=== PATIENT | female | born 1960 | race Two or more races ===

== ENCOUNTER 2019-02-23 18:20 | Inpatient (IN) | payer BC ==
[~2019-02-23] VITALS: Ht 154.9 cm; Wt 56.7 kg
[2019-02-23] MEDS ORDERED: HYDROMORPHONE 1 MG/1 ML DISP.SYRIN IV ONE (19:30)
[2019-02-23] MEDS ORDERED: ONDANSETRON 4 MG/2 ML VIAL IV ONE (19:30)
[2019-02-23] MEDS ORDERED: IV NORMAL SALINE 1000 ML BAG IV ONE (19:30)
[2019-02-23] MEDS ORDERED: ONDANSETRON 4 MG/2 ML VIAL ONE (19:34)
[2019-02-23] MEDS ORDERED: HYDROMORPHONE 2 MG/1 ML DISP.SYRIN ONE (19:34)
[2019-02-23 19:48] LABS: BASOPHILS # (AUTO) 0.1 K/uL (0.0-8.0); BASOPHILS % (AUTO) 0.8 % (0.0-2.0); EOSINOPHILS # (AUTO) 0.2 K/uL (0.0-0.7); HEMATOCRIT 39.3 % (31.2-41.9); HEMOGLOBIN 13.1 g/dL (10.9-14.3); LYMPHOCYTES # (AUTO) 2.7 K/uL (20.0-40.0); LYMPHOCYTES % (AUTO) 30.9 % (20.5-51.5); MEAN CORPUSCULAR HEMOGLOBIN 29.1 uug (24.7-32.8); MEAN CORPUSCULAR HGB CONC 33 g/dL (32.3-35.6); MEAN CORPUSCULAR VOLUME 87.5 fL (75.5-95.3); MONOCYTES # (AUTO) 0.5 K/uL (2.0-10.0); MONOCYTES % (AUTO) 6.1 % (0.0-11.0); NEUTROPHILS # (AUTO) 5.2 K/uL (1.8-8.9); NEUTROPHILS % (AUTO) 60.2 % (38.5-71.5); PLATELET COUNT (AUTO) 256 K/uL (179-408); WHITE BLOOD COUNT (AUTO) 8.7 K/uL (3.8-11.8)
[2019-02-23 19:55] LABS: CREATININE 0.7 mg/dL (0.6-1.3)
[2019-02-23 20:01] LABS: BILIRUBIN,DIRECT 0.1 mg/dL (0.0-0.2); BILIRUBIN,TOTAL 0.3 mg/dL (0.2-1.0); TOTAL PROTEIN, SERUM 7.1 g/dL (6.4-8.2)
[2019-02-23] MEDS ORDERED: BACLOFEN 10 MG TABLET ONE (20:19)
--- NOTE | 2019-02-23 20:29 | NUR ---
DONALD GRIGSBY NP FROM [facility] HERE TO EVAL PATIENT
[2019-02-23] MEDS ORDERED: BACLOFEN 10 MG TABLET PO ONE (20:30)
[2019-02-23] MEDS ORDERED: PROP20TA7 PO (20:55)
[2019-02-23] MEDS ORDERED: TRAZ-182 PO (20:56)
[2019-02-23] MEDS ORDERED: VORT20TA PO (20:57)
[2019-02-23] MEDS ORDERED: GABA-534 PO (20:58)
[2019-02-23] MEDS ORDERED: BACL10TA PO (20:58)
[2019-02-23] MEDS ORDERED: MAGN400T52 PO (20:59)
[2019-02-23] MEDS ORDERED: METH100P21 PO (21:05)
--- NOTE | 2019-02-23 21:20 | NUR ---
PATIENT REFUSED TO HAVE VALUABLE PLACED IN SAFE
[2019-02-23] MEDS ORDERED: METHOCARBAMOL PO SCH (21:30)
[2019-02-23] MEDS ORDERED: ACETAMINOPHEN 325 MG TABLET PO PRN (21:30)
[2019-02-23] MEDS ORDERED: MAGNESIUM HYDROXIDE 30 ML LIQUID UDC PO PRN (21:30)
[2019-02-23] MEDS ORDERED: ONDANSETRON 4 MG/2 ML VIAL IV PRN (21:30)
--- NOTE | 2019-02-23 21:30 | NUR ---
TRANSFERED TO [address] [place] [address]
[2019-02-23 21:43] VITALS: BP 141/88
--- NOTE | 2019-02-23 23:30 | NUR ---
Received Pt, a 58 y.o. [place] female via gurney to med/surg room 311. Pt under the care of Welt [facility] Ramsey with a dx of intractable pain. Meds reconciled, orders received. VS stable, c/o 1010 back pain, [place] 5/325 administered as ordered with good effect. Skin assessment complete, c/d/i. Medical h/o Lumbar radiculopathy, C2, C4, C5, and C6 bulging discs, neuropathy, chronic pain, HTN, and depression. NKA. AM labs ordered. Pt currently in bed resting, will continue to monitor.
[2019-02-23] MEDS: HYDROCODONE/APAP 5-325MG TABLET PO PRN (23:56)
[2019-02-24] MEDS: HYDROMORPHONE 1 MG/1 ML DISP.SYRIN IV PRN ×5 (01:29→22:39)
[2019-02-24 05:20] VITALS: BP 132/65
[2019-02-24] MEDS: HYDROCODONE/APAP 5-325MG TABLET PO PRN ×3 (06:14→18:45)
[2019-02-24] MEDS: PANTOPRAZOLE SODIUM 40 MG TABLET.DR PO SCH (06:18)
[2019-02-24 06:49] LABS: BILIRUBIN,TOTAL 0.2 mg/dL (0.2-1.0); CREATININE 0.8 mg/dL (0.6-1.3); MAGNESIUM 1.8 mg/dL (1.8-2.4); PHOSPHOROUS 4.7 mg/dL (2.5-4.9); POTASSIUM 3.7 mmol/L (3.5-5.1)
[2019-02-24 06:54] LABS: THYROID STIMULATING HORMONE 2.348 mIU/mL (0.358-3.740)
[2019-02-24 07:15] LABS: BASOPHILS % (AUTO) 0.6 % (0.0-2.0); EOSINOPHILS # (AUTO) 0.2 K/uL (0.0-0.7); EOSINOPHILS % (AUTO) 2.5 % (0.0-7.0); LYMPHOCYTES # (AUTO) 2.2 K/uL (20.0-40.0); LYMPHOCYTES % (AUTO) 35.1 % (20.5-51.5); MEAN CORPUSCULAR HEMOGLOBIN 29.9 uug (24.7-32.8); MEAN CORPUSCULAR HGB CONC 34 g/dL (32.3-35.6); MEAN CORPUSCULAR VOLUME 87.9 fL (75.5-95.3); MONOCYTES # (AUTO) 0.4 K/uL (2.0-10.0); NEUTROPHILS # (AUTO) 3.5 K/uL (1.8-8.9); NEUTROPHILS % (AUTO) 55.8 % (38.5-71.5); PLATELET COUNT (AUTO) 208 K/uL (179-408); RED BLOOD CELL COUNT(AUTO) 3.76 MIL/uL (3.63-4.92)
[2019-02-24 07:18] LABS: HEMATOCRIT 33.1 % (31.2-41.9); HEMOGLOBIN 11.2 g/dL (10.9-14.3); WHITE BLOOD COUNT (AUTO) 6.2 K/uL (3.8-11.8)
[2019-02-24] MEDS: METHOCARBAMOL 500 MG TABLET PO SCH ×5 (08:02→22:36)
[2019-02-24] MEDS: BACLOFEN 10 MG TABLET PO SCH ×3 (09:10→17:30)
[2019-02-24] MEDS: PROPRANOLOL HCL 20 MG TABLET PO SCH (09:10)
[2019-02-24] MEDS: GABAPENTIN 300 MG CAPSULE PO SCH ×3 (09:11→17:30)
[2019-02-24 11:17] VITALS: BP 117/64
[2019-02-24 15:34] VITALS: BP 131/67
--- NOTE | 2019-02-24 20:00 | NUR ---
RECEIVED PATIENT ASLEEP IN BED. NO S/S OF PAIN OR DISCOMFORT. NO RESP. DISTRESS NOTED. VSS. CALL LIGHT IN REACH. WILL CONTINUE TO MONITOR AND ASSESS.
[2019-02-24 20:32] VITALS: BP 107/57
[2019-02-24] MEDS: ATORVASTATIN 20 MG TABLET PO SCH ×2 (21:00→22:36)
[2019-02-24] MEDS: TRAZODONE 50 MG TABLET PO SCH ×2 (21:00→22:36)
[2019-02-25] MEDS: IV NS 1000 ML 1,000 ML IV PRN ×2 (00:43→17:25)
[2019-02-25] MEDS: HYDROMORPHONE 1 MG/1 ML DISP.SYRIN IV PRN ×4 (02:47→19:49)
[2019-02-25] MEDS: HYDROCODONE/APAP 5-325MG TABLET PO PRN (03:54)
[2019-02-25 06:18] VITALS: BP 145/72
[2019-02-25] MEDS: PANTOPRAZOLE SODIUM 40 MG TABLET.DR PO SCH (06:19)
--- NOTE | 2019-02-25 06:45 | NUR ---
PATIENT RESTING IN BED. C/O PAIN. 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 VSS. WILL CONTINUE TO MONITOR AND ASSESS.
--- NOTE | 2019-02-25 06:48 | NUR ---
INFORMATION SENT: SALINAS,UR-02/24,PROGRESS NOTES 4-1 INSURANCE NAME: [facility] FAX NUMBER: [phone] FAX SENT
[2019-02-25 06:49] LABS: *BILIRUBIN,URIN NEGATIVE (NEGATIVE); *BLOOD, URINE NEGATIVE (NEGATIVE); *CLARITY,URINE CLEAR (CLEAR); *COLOR,URINE LIGHT YELLOW (YELLOW); *KETONES,URINE NEGATIVE (NEGATIVE); *UROBILINOGEN,URINE 0.2 E.U./dl (NORMAL); LEUKOCYTE ESTERASE ,URINE NEGATIVE (NEGATIVE); NITRITE, URINE NEGATIVE (NEGATIVE); PH,URINE 5.5 (5.0-8.0); UGLUCOSE NEGATIVE (NEGATIVE)
[2019-02-25 06:54] LABS: WBC,URINE 0-3 /HPF (0-3)
[2019-02-25 07:34] LABS: BASOPHILS # (AUTO) 0.1 K/uL (0.0-8.0); BASOPHILS % (AUTO) 0.7 % (0.0-2.0); EOSINOPHILS # (AUTO) 0.2 K/uL (0.0-0.7); EOSINOPHILS % (AUTO) 3.4 % (0.0-7.0); HEMATOCRIT 35.6 % (31.2-41.9); HEMOGLOBIN 12.1 g/dL (10.9-14.3); LYMPHOCYTES # (AUTO) 2.2 K/uL (20.0-40.0); LYMPHOCYTES % (AUTO) 29.7 % (20.5-51.5); MEAN CORPUSCULAR HEMOGLOBIN 29.8 uug (24.7-32.8); MEAN CORPUSCULAR HGB CONC 34 g/dL (32.3-35.6); MEAN CORPUSCULAR VOLUME 87.5 fL (75.5-95.3); MONOCYTES # (AUTO) 0.4 K/uL (2.0-10.0); MONOCYTES % (AUTO) 6.1 % (0.0-11.0); NEUTROPHILS # (AUTO) 4.4 K/uL (1.8-8.9); NEUTROPHILS % (AUTO) 60.1 % (38.5-71.5); PLATELET COUNT (AUTO) 227 K/uL (179-408); RED BLOOD CELL COUNT(AUTO) 4.06 MIL/uL (3.63-4.92); WHITE BLOOD COUNT (AUTO) 7.3 K/uL (3.8-11.8)
[2019-02-25 07:47] LABS: CREATININE 0.7 mg/dL (0.6-1.3); POTASSIUM 4.2 mmol/L (3.5-5.1)
[2019-02-25] MEDS: BACLOFEN 10 MG TABLET PO SCH ×3 (08:56→16:20)
[2019-02-25] MEDS: GABAPENTIN 300 MG CAPSULE PO SCH ×3 (08:56→16:19)
[2019-02-25] MEDS: PROPRANOLOL HCL 20 MG TABLET PO SCH (08:57)
[2019-02-25] MEDS: METHOCARBAMOL 500 MG TABLET PO SCH ×4 (09:01→23:19)
[2019-02-25 11:06] VITALS: BP 150/77
[2019-02-25] MEDS: ALPRAZOLAM 0.5 MG TABLET PO SCH ×2 (11:56→16:20)
[2019-02-25 14:58] VITALS: BP 137/77
[2019-02-25] MEDS: ACETAMINOPHEN 325 MG TABLET PO SCH (18:20)
--- NOTE | 2019-02-25 18:45 | NUR ---
PATIENT IS IN HER ROOM, SLEEPING, FREE OF PAIN, NO DISTRESS NOTED, ALL SAFETY AND COMFORT MEASURES ARE IMPLEMENTED
[2019-02-25 20:14] VITALS: BP 142/69
[2019-02-25] MEDS: TRAZODONE 50 MG TABLET PO SCH (23:19)
[2019-02-25] MEDS: ATORVASTATIN 20 MG TABLET PO SCH (23:19)
[2019-02-26] MEDS: ACETAMINOPHEN 325 MG TABLET PO SCH ×4 (00:01→17:08)
[2019-02-26] MEDS: HYDROMORPHONE 1 MG/1 ML DISP.SYRIN IV PRN ×4 (00:42→21:14)
[2019-02-26] MEDS: HYDROCODONE/APAP 5-325MG TABLET PO PRN (05:48)
--- NOTE | 2019-02-26 06:00 | NUR ---
pt alert, oriented, continue to complain of pain overnight, had 2 doses of dilaudid and fall asleep after,everytime pt wakes up then started calling crying, restless, asking for pain medication. refused dilaudid this morning and given norco. will continue to monitor, vss,afebrile, voiding well, no bm
[2019-02-26 06:35] VITALS: BP 133/69
[2019-02-26] MEDS: PANTOPRAZOLE SODIUM 40 MG TABLET.DR PO SCH (06:47)
[2019-02-26] MEDS: ALPRAZOLAM 0.5 MG TABLET PO SCH ×3 (06:48→21:08)
--- NOTE | 2019-02-26 07:18 | NUR ---
INFORMATION SENT: SALINAS,UR-02/25,PROGRESS NOTES 4-2 INSURANCE NAME: [facility] FAX NUMBER: [phone] FAX SENT
--- NOTE | 2019-02-26 07:35 | NUR ---
noted new orders, reported CO2 =41, with new orders. and carried out
[2019-02-26] MEDS: IV NS 1000 ML 1,000 ML IV PRN ×2 (07:40→20:32)
[2019-02-26] MEDS: PROPRANOLOL HCL 20 MG TABLET PO SCH (09:28)
[2019-02-26] MEDS: METHOCARBAMOL 500 MG TABLET PO SCH ×4 (09:28→20:15)
[2019-02-26] MEDS: BACLOFEN 10 MG TABLET PO SCH ×3 (09:28→17:08)
[2019-02-26] MEDS: GABAPENTIN 300 MG CAPSULE PO SCH ×3 (09:28→17:08)
[2019-02-26 11:02] VITALS: BP 139/83
[2019-02-26] MEDS ORDERED: DIAZEPAM 10 MG/2 ML DISP.SYRIN IV PRN (13:00)
[2019-02-26] MEDS ORDERED: LORAZEPAM 2 MG/1 ML VIAL IV PRN (14:00)
[2019-02-26] MEDS ORDERED: DEXAMETHASONE SOD PHOSPHATE 10 MG INJ IM ONE (14:00)
[2019-02-26] MEDS: TRINTELLIX PO SCH (15:17)
[2019-02-26 15:29] VITALS: BP 155/87
--- NOTE | 2019-02-26 19:17 | NUR ---
End of shift: Patient is laying in bed awake alert and oriented. Bed is in low locked position with call light in reach. No distress noted. Patient denies any pain at the moment. Patient is ambulatory/steady. Plan is to manage pain and follow up with procedure scheduled for tomorrow. Will endorse plan of care to oncoming nurse. Addendum: 02/26/19 at 1920 by CALIN CASPER RN ALEXANDRU running at 75ml through R hand 22g.
[2019-02-26 20:00] VITALS: BP 152/73
[2019-02-26] MEDS: TRAZODONE 50 MG TABLET PO SCH (20:14)
[2019-02-26] MEDS: ATORVASTATIN 20 MG TABLET PO SCH (20:14)
--- NOTE | 2019-02-26 21:15 | NUR ---
Received patient awake alert & oriented no SOB denies chest pain. Appears depressed patient crying & anxious, c/o severe back discomfort 10/10 level of pain. BP elevated 165/90. Dilaudid 1mg IVP adm. Routine night Xanax po given. Assisted to the bathroom. Patient c/o hard time urinating. Bladder scan shows 10 ml. Education provided about side effects of Dilaudid medication. Patient verbalized understanding.
--- NOTE | 2019-02-26 22:12 | NUR ---
Patient resting comfortably at this time. Family in room.
[2019-02-27] MEDS: HYDROMORPHONE 1 MG/1 ML DISP.SYRIN IV PRN ×3 (00:52→12:03)
--- NOTE | 2019-02-27 00:54 | NUR ---
Patient awake c/o lower back discomfort w/ 10/10 level of pain. Assisted to the bathroom, patient voided. Dilaudid 1mg IVP adm. Instructed patient to keep flat on bed to avoid pressure on her lower back. Patient verbalized understanding. Kept comfortable.
[2019-02-27] MEDS: HYDROCODONE/APAP 5-325MG TABLET PO PRN ×2 (03:37→06:52)
[2019-02-27 06:00] VITALS: BP 166/96
[2019-02-27] MEDS: ACETAMINOPHEN 325 MG TABLET PO SCH ×3 (06:04→12:01)
[2019-02-27] MEDS: ALPRAZOLAM 0.5 MG TABLET PO SCH ×2 (06:04→14:12)
[2019-02-27] MEDS: PANTOPRAZOLE SODIUM 40 MG TABLET.DR PO SCH (06:04)
--- NOTE | 2019-02-27 06:15 | NUR ---
Patient had shower today, kept comfortable. Education about After care post Epidural steroid injection procedure provided, patient verbalized understanding.
--- NOTE | 2019-02-27 06:57 | NUR ---
Patient verbalizing lower leg pain at 10/10 after administration of routine morning medications. PRN [place] administered. Patient kept comfortable. All needs met at this time. Safety measures implemented and effective. Call light within reach. Continue plan of care.
--- NOTE | 2019-02-27 07:05 | NUR ---
INFORMATION SENT: FACESHEET,PROGRESS NOTES 4-3 INSURANCE NAME: [facility] FAX NUMBER: [phone] FAX SENT
[2019-02-27] MEDS: TRINTELLIX PO SCH (08:47)
[2019-02-27] MEDS: BACLOFEN 10 MG TABLET PO SCH ×3 (08:48→17:00)
[2019-02-27] MEDS: PROPRANOLOL HCL 20 MG TABLET PO SCH (08:48)
[2019-02-27] MEDS: METHOCARBAMOL 500 MG TABLET PO SCH ×3 (08:49→17:00)
[2019-02-27] MEDS: GABAPENTIN 300 MG CAPSULE PO SCH ×3 (08:49→17:00)
[2019-02-27] MEDS: IV NS 1000 ML 1,000 ML IV PRN (09:46)
--- NOTE | 2019-02-27 10:16 | NUR ---
Patient off unit at 10:13 am for procedure.
[2019-02-27] MEDS ORDERED: IOHEXOL-240 MG , 50 ML VIAL IV ONE (10:29)
[2019-02-27] MEDS ORDERED: methylPREDNISolone ACETATE 80 MG VIAL ONE (10:29)
[2019-02-27] MEDS ORDERED: BUPIVACAINE 0.25% 30 ML VIAL ONE (10:30)
--- NOTE | 2019-02-27 11:40 | NUR ---
Patient back on unit at 11:35 am. Procedure completed using local anesthetic. Patient's VS WNL. Will continue to monitor.
[2019-02-27 11:43] VITALS: BP 125/68
[2019-02-27] MEDS ORDERED: DIAZ5TAB PO (14:05)
[2019-02-27 15:07] VITALS: BP 105/46
--- NOTE | 2019-02-27 17:40 | NUR ---
Patient discharged home and left floor via wheelchair with nurse and daughter. All discharge directions given and patient acknowledged understanding.
--- NOTE | 2019-02-28 06:23 | NUR ---
INFORMATION SENT: FACESHEET,DISCHARGE SUMMARY INSURANCE NAME: [facility] FAX NUMBER: [phone] FAX SENT
== END 2019-02-27 17:50 | disposition home or self-care (01) | DRG 552 ==
LOC: ER 18:23 → MEDSURG3 21:22
PROVIDERS: ADMIT Nurse Practitioner Acute Care; ATTEND Nurse Practitioner Acute Care
DX: M50.11 Cervical disc disorder with radiculopathy, high cervical region (principal); E44.1 Mild protein-calorie malnutrition; G89.4 Chronic pain syndrome; Z68.23 Body mass index [BMI] 23.0-23.9, adult; Z91.19 Patient's noncompliance with other medical treatment and regimen; I10 Essential (primary) hypertension; F32.9 Major depressive disorder, single episode, unspecified; M51.16 Intervertebral disc disorders with radiculopathy, lumbar region; M47.26 Other spondylosis with radiculopathy, lumbar region; Z79.899 Other long term (current) drug therapy; E11.9 Type 2 diabetes mellitus without complications; E78.5 Hyperlipidemia, unspecified; R32 Unspecified urinary incontinence
CPT/HCPCS: 36415; 70030-TC; 72131; 74018; 83690; 83735; 84100; 84443; 85025; 87086; 93005; A4663; G0378; J1040; J1100; J1170; J2405; J3490; J7030; Q9966

== ENCOUNTER 2021-06-06 12:12 | Emergency (ER) | payer BC ==
[~2021-06-06] VITALS: Ht 152.4 cm; Wt 54.4 kg
[~2021-06-06 12:12] MED LIST: BACL10TA PO; DIAZ5TAB PO; GABA-534 PO; MAGN400T52 PO; METH100P21 PO; PROP20TA7 PO; TRAZ-182 PO; VORT20TA PO
[2021-06-06] MEDS ORDERED: ONDANSETRON 4 MG/2 ML VIAL IV ONE (13:00)
[2021-06-06] MEDS ORDERED: HYDROMORPHONE 1 MG/1 ML DISP.SYRIN IV ONE (13:00)
[2021-06-06] MEDS ORDERED: ONDANSETRON 4 MG/2 ML VIAL ONE (13:16)
[2021-06-06] MEDS ORDERED: HYDROMORPHONE 1 MG/1 ML DISP.SYRIN ONE (13:16)
[2021-06-06 13:18] LABS: HEMATOCRIT 40.9 % (31.2-41.9); MEAN CORPUSCULAR HEMOGLOBIN 28.6 uug (24.7-32.8); MEAN CORPUSCULAR VOLUME 86.9 fL (75.5-95.3); PLATELET COUNT (AUTO) 294 K/uL (179-408)
[2021-06-06 13:32] LABS: CREATININE 0.7 mg/dL (0.6-1.3); POTASSIUM 4.2 mmol/L (3.5-5.1)
[2021-06-06 13:44] LABS: BILIRUBIN,DIRECT 0.1 mg/dL (0.0-0.2); BILIRUBIN,TOTAL 0.3 mg/dL (0.2-1.0); TOTAL PROTEIN, SERUM 7.6 g/dL (6.4-8.2)
[2021-06-06] MEDS ORDERED: ONDANSETRON ODT 4 MG TAB.RAPDIS ONE (14:11)
[2021-06-06] MEDS ORDERED: diphenhydrAMINE 50 MG/1 ML VIAL IV ONE (14:15)
[2021-06-06 14:51] LABS: *BILIRUBIN,URIN NEGATIVE (NEGATIVE); *BLOOD, URINE NEGATIVE (NEGATIVE); *CLARITY,URINE CLEAR (CLEAR); *COLOR,URINE YELLOW (YELLOW); *KETONES,URINE NEGATIVE (NEGATIVE); *UROBILINOGEN,URINE 0.2 E.U./dl (NORMAL); LEUKOCYTE ESTERASE ,URINE NEGATIVE (NEGATIVE); NITRITE, URINE NEGATIVE (NEGATIVE); PH,URINE 6.5 (5.0-8.0); UGLUCOSE NEGATIVE (NEGATIVE)
[2021-06-06] MEDS ORDERED: diphenhydrAMINE 50 MG/1 ML VIAL ONE (14:51)
--- NOTE | 2021-06-06 16:32 | NUR ---
IV removed. Catheter intact and site benign. Pressure and 4x4 gauze applied to site. No bleeding noted.
--- NOTE | 2021-06-06 16:32 | NUR ---
Patient discharged to home in stable condition. Written and verbal after care instructions given. Patient verbalizes understanding of instructions. Stressed follow up or return to ER for worsening s/s.
== END 2021-06-06 16:33 | disposition home or self-care (01) ==
LOC: ER 12:12
DX: M54.9 Dorsalgia, unspecified (principal); M47.26 Other spondylosis with radiculopathy, lumbar region; G89.4 Chronic pain syndrome; E11.40 Type 2 diabetes mellitus with diabetic neuropathy, unspecified; Z79.899 Other long term (current) drug therapy; F32.9 Major depressive disorder, single episode, unspecified; R32 Unspecified urinary incontinence; R94.31 Abnormal electrocardiogram [ECG] [EKG]
CPT/HCPCS: 36415; 71045; 72110; 80048; 80076; 81003; 83605; 83880; 84145; 84484; 85025; 85651; 85730; 86140; 87040 ×2; 87086; 93005; 96374; 96375; 99285; J1170; J1200; J2405; 70030-TC; A4663; Q0162